=== PATIENT | female | born 1950 | race Caucasian/White ===

== ENCOUNTER → 2016-10-04 | Outpatient (CLI) | payer OTHER, MEDICARE ==
[~2016-10-04] MED LIST: ALPRAZOLAM 0.0.25 MG PO; BUPRENORPHINE HC8 MG SUBLING; CARISOPRODOL350 MG PO; CELEBREX 200 M200 MG PO; CENTRUM SILVER1 EAC4 PO; CRANBERRY200 MG PO; CYMBALTA30 MG PO; CYMBALTA60 MG PO; DIAZEPAM 10 MG10 M1 PO; FENTANYL PA50 MCG/HR TRANSDERM; FLONASE 0.05%50 MCG NS; HYDROCODON-ACE1 EAC2 PO; HYDROCODONE-AP1 EA12 PO; HYDROCODONE-AP1 EAC6 PO; LEVSIN0.125 MG PO; LOSARTAN-HCTZ1 EAC2 PO; MELOXICAM15 MG PO; NEXIUM40 MG PO; NITROFURANTOIN100 MG PO; PREVACID 30MG C30 M1 PG; RESTORIL15 MG PO; SINGULAIR 10 MG10 M1 PO; SOMA350 MG PO; SUDAFED 12 HR120 MG PO
== END ==
LOC: RAD 09:41
DX: R05 Cough (principal)

== ENCOUNTER → 2018-10-16 | Outpatient (CLI) | payer OTHER, MEDICARE ==
[~2018-10-16] MED LIST changes: +CLONAZEPAM 0.50.5 M1 PO; +CYCLOBENZAPRINE5 MG PO; +DURAGESIC1 EAC1 TRANSDERM; +NORCO 10-325 T1 EACH PO; +PROTONIX40 M1 PO; +PROTOPIC OINTME30 GM TOP; +REGLAN 10 MG TA10 MG PO; +VAYACOG CAPSUL1 EACH PO
== END ==
LOC: CAT 10-13 14:29
DX: S00.83XA Contusion of other part of head, initial encounter (principal); G31.9 Degenerative disease of nervous system, unspecified; Z85.528 Personal history of other malignant neoplasm of kidney; Z90.5 Acquired absence of kidney; Z90.49 Acquired absence of other specified parts of digestive tract; W19.XXXA Unspecified fall, initial encounter; Y93.89 Activity, other specified; Y92.89 Other specified places as the place of occurrence of the external cause; Y99.8 Other external cause status

== ENCOUNTER → 2019-02-19 | Outpatient (CLI) | payer OTHER, MEDICARE ==
[~2019-02-19] VITALS: Ht 162.6 cm; Wt 68.0 kg
[~2019-02-19] MED LIST changes: +ALPRAZOLAM ER1 MG PO; +DURAGESIC1 EAC4 TRANSDERM; +ERGOCALCIF50000 UNIT PO; +LYRICA25 MG PO; +SOMNAPURE PO; +VIIBRYD20 MG PO
--- NOTE | ~2019-02-19 | P ---
[facility] [place] [address] PROCEDURE REPORT Name: KRYSTLE BUSTILLO Room #: REG [facility]#: [id number] Admission: 02/19/19 Attend Phys: Joshua Cabrera MD Discharge: Date of : 48 Report #: [id number] THIS REPORT FOR: //name// CC: Joshua Muse MD BRIEF HISTORY: The patient is a 68-year-old woman who was seen in the office recently. She was noted to be anemic once again. She had a workup for anemia in 2011, which was nondiagnostic. She denies any GI symptoms. She does take meloxicam on a daily basis. PREOPERATIVE DIAGNOSIS: Anemia. POSTOPERATIVE DIAGNOSES: 1. Small gastric ulcer antrum of stomach. 2. Erosive antral gastritis. MEDICATIONS: Deep sedation with propofol per anesthesia. SPECIMEN: Biopsies of ulcer. ESTIMATED BLOOD LOSS: 3 mL. PROCEDURE: EGD with biopsy. FINDINGS: Prior to propofol sedation, procedure of upper endoscopy was discussed with the patient as well as potential risks and its complications. She indicates she understands and desires to proceed. DESCRIPTION OF PROCEDURE: With the patient in the left lateral decubitus position, the Olympus video endoscope was inserted in cervical esophagus under direct vision without difficulty. Examination of this organ through its entire length revealed normal esophageal mucosa down the squamocolumnar junction. The squamocolumnar junction was inspected and noted to be unremarkable. No ulcers, erosions, strictures or masses or significant hiatal hernias were seen. Scope was advanced in the stomach which was examined on end view as well as retroflexed views. There were a couple punctate areas of darkish material. This may represent droplets of old blood. Also, could represent some bilious material. The mucosa in the proximal stomach was generally unremarkable. However in the antrum, there was a 5 mm benign appearing nonbleeding gastric ulcer. The base was clean. There was white exudate. No vessels or blood was seen. In addition, there were multiple erosions in the antrum of the stomach without evidence of active bleeding. The pylorus was unremarkable. The duodenal bulb and postbulbar sweep down to the third portion were noted to be unremarkable. No evidence of bleeding lesions. The villous pattern was normal. Vascular ectasias were not seen. At that point, the scope was slowly withdrawn [facility] [address] [place] [address] PROCEDURE REPORT Name: IWONAKRYSTLE J Room #: REG Kylah Alexander#: [id number] Admission: 02/19/19 Attend Phys: Joshua Cabrera MD Discharge: Date of : 48 Report #: [id number] and careful circumferential views confirmed the above findings. Biopsies were obtained of the gastric ulcer. The patient tolerated the procedure well. CONDITION OF THE PATIENT UPON DISCHARGE: Following procedure, the patient drowsy and prepared for colonoscopy. INSTRUCTIONS TO THE PATIENT AND FAMILY AT THE TIME OF DISCHARGE: We will have her withhold her meloxicam. She may use acetaminophen. We will have her start pantoprazole 40 mg daily and follow up with Dr. Muse with regard to management of her pain symptoms in view of the fact she now has an ulcer. In the intermediate, she may be able to return to nonsteroidal, but will need cytoprotection with either PPI or misoprostol. Proceed with colonoscopy at this time. By: [id number] Joshua Cabrera MD /nt
--- NOTE | ~2019-02-19 | P ---
[facility] [place] [address] PROCEDURE REPORT Name: KRYSTLE BUSTILLO Room #: REG [facility]#: [id number] Admission: 02/19/19 Attend Phys: Joshua Cabrera MD Discharge: Date of : 48 Report #: [id number] THIS REPORT FOR: //name// CC: Joshua Muse MD DATE OF SERVICE: 02/19/2019 BRIEF HISTORY: The patient is a 68-year-old woman with recent findings of anemia. She also has a history of colon polyps. PREOPERATIVE DIAGNOSES: Anemia and history of colon polyps. POSTOPERATIVE DIAGNOSES: 1. Diminutive cecal polyp. 2. Moderate sigmoid diverticula. MEDICATIONS: Deep sedation with propofol per Anesthesia. SPECIMEN: Cecal polyp. ESTIMATED BLOOD LOSS: 3 mL. PROCEDURE: Colonoscopy to cecum and terminal ileum with biopsy. FINDINGS: Prior to propofol sedation, procedure of colonoscopy discussed with the patient as well as potential risks and its complications. She indicates she understands and desires to proceed. DESCRIPTION OF PROCEDURE: With the patient in left lateral decubitus position, digital examination was completed, which revealed no abnormalities. Subsequently, the Olympus video colonoscope was introduced in the rectum, advanced under direct vision to the cecum. Done with minimal difficulty. Cecum was identified by the ileocecal valve and the appendiceal orifice. I was able to visualize the distal segment of terminal ileum, which was inspected and noted to be unremarkable. At that point, the scope was slowly withdrawn and careful circumferential views obtained. The prep was good. Mucosa was within normal limits, normal vascular pattern, normal light reflex. As we withdrew the scope, a diminutive polyp was seen and removed with biopsy forceps from the cecum. Scope was further withdrawn and no additional neoplastic lesions were seen. No additional polyps were identified. However, in the sigmoid colon, there was noted to be moderately severe diverticular disease without endoscopic evidence of diverticulitis. Scope was withdrawn in the rectum, no abnormalities were seen. Upon retroflexion, no abnormalities were seen. Scope was withdrawn. The patient tolerated the procedure well. [address] [address] PROCEDURE REPORT Name: KRYSTLE BUSTILLO Room #: REG [place] Alexander#: [id number] Admission: 02/19/19 Attend Phys: Joshua Cabrera MD Discharge: Date of : 48 Report #: [id number] CONDITION OF THE PATIENT UPON DISCHARGE: Following procedure, the patient drowsy, aroused, conversant and will be discharged home when fully ambulatory. INSTRUCTIONS TO THE PATIENT AND FAMILY AT THE TIME OF DISCHARGE: One diminutive polyp was seen and removed as described. We will follow up on the path and make further recommendations. If it would be adenomatous, return in 5 years; if not, then 10 years would be indicated. As far as anemia, I do not see an obvious explanation. Please see upper endoscopy report for additional details as she was found to have a gastric ulcer today. She will return to care of Dr. Vargas Muse and return to see me as needed. By: 1036 2036 Joshua Cabrera MD /nt
--- NOTE | 2019-02-20 15:07 | PATH ---
[facility] [address] [place] [address] PATHOLOGY RPT PROCEDURE Name: KRYSTLE BAKER Room #: REG TERESAKylah Rendon.#: [id number] Admission: 02/19/19 Date of : 48 Discharge: Report #: [id number] Path Case #: [id number] [facility] Accession Number: [id number] . 01 Material submitted: . PART A: stomach - BX GASTRIC ULCER R/O H PYLORI PART B: cecum - BX POLYP AT CECUM . 01 Clinical history: . Pre-OP DX: Anemia Post-OP DX: Gastric ulcer, gastritis, colon polyp, diverticulosis . 02 Diagnosis: A. Stomach, "gastric ulcer", biopsy: - Chronic superficial gastritis with focal superficial erosion. - No evidence of Helicobacter pylori on immunoperoxidase stain. . B. Colon, cecum, biopsy: - Colonic mucosa with moderate acute and chronic inflammation and mild hyperplastic changes. (MERVAT:serge; 02/20/2019) QTP/02/20/2019 . 02 Electronically signed: . Leander Conde MD, Pathologist NPI- [id number] . 01 Gross description: . A. Received in formalin labeled "Krystle Baker, GINA gastric ulcer, rule out H. pylori," are 2 segments of najera soft tissue measuring 0.9 x 0.2 x 0.2 cm in aggregate dimensions and ranging from 0.4 to 0.5 cm in maximum dimension. The specimen is submitted entirely in cassette A1. . B. Received in formalin labeled "Krystle Baker, GINA polyp at cecum," is a single segment of najera soft tissue measuring 0.4 cm in maximum dimension. The specimen is entirely submitted in cassette B1. (TSD; 02/19/2019) TOB/TOB . 02 Pathologist provided ICD-10: K29.30, K52.9, D64.9 . 02 CPT . 897980, 712024 Specimen Comment: A courtesy copy of this report has been sent to Specimen Comment: [phone], . Specimen Comment: Report sent to / [place] [address] PATHOLOGY RPT PROCEDURE Name: KRYSTLE BAKER [facility] [id number] Admission: 02/19/19 Date of : 48 Discharge: Report #: [id number] Path Case #: [id number] Specimen Comment: A duplicate report has been generated due to demographic updates. Performed at: [address] [facility], [place], [place] [id number] MD Danilo Centeno MD Phone: [phone] Performed at: [address] [facility] [id number] MD Ayah Duval MD Phone: [phone]
== END | disposition home or self-care (01) ==
LOC: GI 08:29
DX: K63.5 Polyp of colon (principal); K52.9 Noninfective gastroenteritis and colitis, unspecified; K57.30 Diverticulosis of large intestine without perforation or abscess without bleeding; K29.30 Chronic superficial gastritis without bleeding; K21.9 Gastro-esophageal reflux disease without esophagitis; Z86.010 Personal history of colon polyps; I10 Essential (primary) hypertension; F32.9 Major depressive disorder, single episode, unspecified; F41.9 Anxiety disorder, unspecified; G47.30 Sleep apnea, unspecified; Z90.49 Acquired absence of other specified parts of digestive tract; Z98.890 Other specified postprocedural states; Z98.41 Cataract extraction status, right eye; Z98.42 Cataract extraction status, left eye; Z79.899 Other long term (current) drug therapy; Z85.528 Personal history of other malignant neoplasm of kidney
CPT/HCPCS: 62110; 62900

== ENCOUNTER 2019-06-11 15:40 | Inpatient (IN) | payer OTHER, MEDICARE ==
[~2019-06-11] VITALS: Ht 162.6 cm; Wt 72.9 kg
[2019-06-11 15:41] VITALS: BP 100/64
[2019-06-11 17:12] LABS: ABSOLUTE NEUTROPHILS 4.6 thou/uL (1.4-8.2); BASOPHILS 0.9 % (0.0-2.0); HEMATOCRIT 34.5 % (37.0-47.0); HEMOGLOBIN 11.7 gm/dL (12.0-15.0); LYMPHOCYTES 30.1 % (24.0-44.0); MCH 29.1 pg (26.0-34.0); MCHC 33.9 g/dL (28.0-37.0); MCV 85.9 fL (80.0-100.0); MONOCYTES 5.6 % (1.0-8.0); PLATELET COUNT 205 thou/uL (150-400); POLYS 62.4 % (36.0-66.0); RBC 4.01 mil/uL (4.20-5.00); WBC 7.4 thou/uL (4.0-11.0)
[2019-06-11 17:21] LABS: CALCIUM 9.5 mg/dL (8.5-10.1); CREATININE 1.5 mg/dL (0.6-1.0); POTASSIUM 3.7 mmol/L (3.5-5.1)
[2019-06-11 17:27] LABS: ALBUMIN 3.9 g/dL (3.4-5.0); TOTAL BILIRUBIN 0.4 mg/dL (<0.1-1.0); TOTAL PROTEIN 7.8 g/dL (6.4-8.2)
[2019-06-11 18:19] LABS: BE(vivo) 0 mmol/L (-2 to +3); PCO2 36.7 mmHg (35.0-45.0); PO2 75.2 mmHg (80.0-100.0); pH 7.433 (7.360-7.450); sO2 95.6 % (92.0-98.0)
[2019-06-11 20:08] LABS: FIBRINOGEN 317.4 mg/dL (210-360); PROTIME 10.5 Seconds (9.3-11.4)
[2019-06-11 20:28] VITALS: BP 108/60
[2019-06-11 20:55] VITALS: BP 121/56
[2019-06-11] MEDS ORDERED: PREGABALIN25 MG PO (22:02)
--- NOTE | 2019-06-11 23:54 | NUR ---
Patient arrive to 3W around 2014 and she was oriented to the room, admission documentation completed, and consents were signed. Patient will be kept on bedrest due to pulmonary embolism, pending official provider orders, which arw expected in the morning. Patient was alert and oriented and nursing advised her to call if she needs any assistance. Patient further described she was "shocked" to find she has PEs and she has been considerably anxious. Nursing will continue to monitor.
--- NOTE | 2019-06-12 04:19 | NUR ---
Nursing monitored patient through NOC. Fall precautions in place; bed alarm on. Patient rested through NOC. Nursing will continue to monitor.
[2019-06-12 04:46] VITALS: BP 143/71
[2019-06-12 05:33] LABS: HEMATOCRIT 30.5 % (37.0-47.0); HEMOGLOBIN 10.3 gm/dL (12.0-15.0); MCH 29.3 pg (26.0-34.0); MCHC 33.8 g/dL (28.0-37.0); MCV 86.7 fL (80.0-100.0); RBC 3.51 mil/uL (4.20-5.00); RDW 14.1 % (10.5-14.5); WBC 5.9 thou/uL (4.0-11.0)
[2019-06-12 07:59] VITALS: BP 138/69
--- NOTE | 2019-06-12 08:43 | EKG ---
[address] [place] [address] ELECTROCARDIOGRAM REPORT Name: KRYSTLE BUSTILLO Yaneth Room #: 354-P ADM IN M.R.#: [id number] Admission: 06/11/19 Attend Phys: Vargas Muse MD Discharge: Date of : 48 Report #: [id number] THIS REPORT FOR: //name// [facility] ED Test Date: 2019-06-11 Test Time: 16:53:12 Pat Name: KRYSTLE BUSTILLO Department: Room: [facility] Gender: F Aprn: TANA : 1950 Requested By: Nena Osullivan Order Number: [id number] MD: Mathew Garcia Measurements Intervals [place] Rate: 95 P: 53 AL: 145 QRS: -31 QRSD: 128 T: 98 QT: 391 QTc: 492 Interpretive Statements Sinus rhythm Left bundle branch block Compared to ECG 03/08/2018 15:23:16 No significant changes Electronically Signed On 06-12-2019 8:42:55 CARPENTER FORM by Mathew Garcia [email or web address] <ELECTRONICALLY SIGNED> By: Mathew Garcia MD 06/12/19 0842 [id number] 52 Mathew Garcia MD /BRE
--- NOTE | 2019-06-12 10:20 | 2DMMODE ---
[facility] [address] [place] [address] 2 D/M-MODE ECHOCARDIOGRAM Name: KRYSTLE BUSTILLO Yaneth Room #: 354-P [facility]#: [id number] Admission: 06/11/19 Attend Phys: Vargas Muse, Discharge: Date of : 48 Report #: [id number] THIS REPORT FOR: //name// APPROVED REPORT Study performed: 06/12/2019 08:13:11 EXAM: Comprehensive 2D, Doppler, and color-flow Echocardiogram Patient Location: In-Patient Room #: 354 Status: routine BSA: 1.78 HR: 74 bpm BP: 130/69 mmHg Rhythm: LBBB Other Information Study Quality: Fair Indications Pulmonary Embolism 2D Dimensions RVDd: 37.75 mm IVSd: 12.20 (7-11mm) LVOT Diam: 18.57 (18-24mm) LVDd: 39.46 mm PWd: 8.61 (7-11mm) Ascending Ao: 32.61 (22-36mm) LVDs: 30.68 (25-40mm) Aortic Root: 36.61 mm Volumes Left Atrial Volume (Systole) Single Plane 4CH: 27.79 mL Single Plane 2CH: 19.10 mL LA ESV Index: 15.00 mL/m2 Aortic Valve AoV Peak Silvino.: 1.27 m/s AO Peak Gr.: 6.41 mmHg LVOT Max P.69 mmHg LVOT Max V: 0.96 m/s MARLENI Vmax: 2.05 cm2 Mitral Valve E/A Ratio: 0.6 MV Decel. Time: 86.84 ms MV E Max Silvino.: 0.46 m/s [facility] [address] [place] [address] 2 D/M-MODE ECHOCARDIOGRAM Name: KRYSTLE BUSTILLO Room #: 354-P [facility]#: [id number] Admission: 06/11/19 Attend Phys: Vargas Muse, Discharge: Date of : 48 Report #: [id number] MV A Silvino.: 0.73 m/s MV PHT: 25.18 ms IVRT: 119.95 ms Tricuspid Valve TR Peak Silvino.: 2.94 m/s TR Peak Gr.: 34.53 mmHg Left Ventricle The left ventricle is normal size. There is normal left ventricular wall thickness. Left ventricular systolic function is mildly decreased. LVEF is -50%. Mild diastolic dysfunction is present (impaired relaxation pattern). Right Ventricle The right ventricle is normal size. The right ventricular systolic function is normal. Atria The left atrium size is normal. The right atrium size is normal. Aortic Valve The aortic valve is normal in structure. No aortic regurgitation is present. There is no aortic valvular stenosis. Mitral Valve The mitral valve is normal in structure. Mild mitral regurgitation. No evidence of mitral valve stenosis. Tricuspid Valve The tricuspid valve is normal in structure. Mild to moderate tricuspid regurgitation. Estimated PAP is 34mmHg plus the right atrial pressure. Pulmonic Valve The pulmonary valve is normal in structure. Mild pulmonic regurgitation. Great Vessels The aortic root is normal in size. The ascending aorta is normal in size. IVC is not well visualized. Pericardium Small hemodynamically insignificant pericardial effusion. [facility] [address] [place] [address] 2 D/M-MODE ECHOCARDIOGRAM Name: IWONAKRYSTLE Yaneth Room #: 354-P [facility] IN ..#: [id number] Admission: 06/11/19 Attend Phys: Vargas Muse, Discharge: Date of : 48 Report #: [id number] <Conclusion> The left ventricle is normal size. LVEF is -50%. The aortic valve is normal in structure. The mitral valve is normal in structure. Mild mitral regurgitation. The tricuspid valve is normal in structure. Mild to moderate tricuspid regurgitation. Estimated PAP is 34mmHg plus the right atrial pressure. The pulmonary valve is normal in structure. Mild pulmonic regurgitation. Small hemodynamically insignificant pericardial effusion. <ELECTRONICALLY SIGNED> By: Adrián Curtis MD 06/12/19 1020 1020 1020 Adrián Curtis MD /INF
--- NOTE | 2019-06-12 10:35 | NUR ---
ASSESSMENT: CM REVIEWED CHART AND MET WITH PATIENT AT THE BEDSIDE. PT WAS ADMITTED FOR PULMONARY EMBOLI. PT REPORTS SHE LIVES IN A HOUSE WITH HER . PT REPORTS HAVING A COUPLE OF STEPS TO ENTER AND ABOUT 14 STEPS WITH HANDRAILS TO THE BASEMENT ONCE INSIDE BUT STATES SHE DOES NOT HAVE TO GO DOWN THERE. PT REPORTS SHE AMBULATES INDEPENDENTLY AND IS INDEPENDENT WITH ADLS. PT REPORTS HAVING A SHOWER CHAIR. PT STATES SHE ALSO WEARS A CPAP AT NIGHT. PT REPORTS SHE HAS NOT HAD HH IN THE PAST NOR BEEN TO A SNF. CM DISCUSSED ROLE. PT STATES SHE ANTICIPATES DISCHARGING HOME WITH NO NEEDS. CM WILL CONTINUE TO FOLLOW TO ASSIST NEEDED.
[2019-06-12 11:48] VITALS: BP 131/70
--- NOTE | 2019-06-12 13:12 | NUR ---
PT ALERT AND ORIENTED TIMES FOUR. VSS, 98%STEPHAN SR ON TELE, HEPARIN GTT INFUSING PER ORDER. PT DENIES PAIN/SOA. PT TOLERATES MEDS AND MEALS. WILL CONTINUE TO MON ITOR.
[2019-06-12 15:42] VITALS: BP 134/86
[2019-06-12 19:41] VITALS: BP 140/73
--- NOTE | 2019-06-13 02:04 | NUR ---
Patient seemed to become more confused/forgetful after MN; She "forgot" she had an IV running on several occasions, walking away from it causing near dislodgement. Also, she exited the bed several times without calling for help as directed to, triggering the bed alarm. She is displeased with nursing for setting the alarm. She is currently refusing her O2. Patient has a hx of UTI and will pass this informaition on to day shift. Nursing will continue to monitor.
[2019-06-13 03:47] VITALS: BP 187/92
[2019-06-13 05:36] LABS: HEMATOCRIT 35.8 % (37.0-47.0); MCHC 33.6 g/dL (28.0-37.0); MCV 86.3 fL (80.0-100.0); RBC 4.15 mil/uL (4.20-5.00); RDW 13.9 % (10.5-14.5); WBC 5.4 thou/uL (4.0-11.0)
[2019-06-13 06:07] VITALS: BP 151/98
--- NOTE | 2019-06-13 07:10 | NUR ---
Patient was observed taking Gaviscon from her purse and administering it to herself overnight. Nursing advised her not to take medication from home. The patient stated the Gaviscon bottle is empty and that she has no other home meds with her. The patient struggled through most of the overnight with anxiety, reflux, and loose stools. The patient advised she has had these problems chronically. Earlier, in the evening, she reported chronic back pain, rating it 10/10. Patient is wearing a Fentanyl patch, which she advised is what she uses at home for pain control. She also repeatedly got out of bed without calling for assistance. Nursing repeatedly educated her to call for help and not to get out of bed without assistance. Her bed alarm was kept on and fall precautions were in place.
[2019-06-13 08:05] VITALS: BP 171/108
--- NOTE | 2019-06-13 10:58 | NUR ---
PT TOOK A PAIR OF SCISSORS AND CUT IV TUBING OFF HEPARIN GTT. WHEN I ASKED PT WHY SHE DID THIS SHE STATED SHE HAD TWO IV'S AND ONLY NEEDED ONE. THE EXPLANATION DID NOT MAKE SENSE SO I CONTACTED DR. AGUILAR AND HE PLACED PATIENT INTO 1:1 OBSERVATION AND CONSULTED PSYCH. NURSING AID MARIAMA WILL SIT WITH PT FOR 1:1 OBSERVATION. WILL CONTINUE TO ASSESS.
[2019-06-13 11:15] VITALS: BP 152/88
--- NOTE | 2019-06-13 13:23 | NUR ---
on-going assessment: CM REVIEWED CHART. PT CONTINUES TO BE ON HEPARIN GTT. PT IS NOT MEDICALLY STABLE FOR DISCHARGE. CM WILL CONTINUE TO FOLLOW TO ASSIST NEEDED.
[2019-06-13 15:12] VITALS: BP 151/98
--- NOTE | 2019-06-13 16:31 | NUR ---
CALLED INTO PT'S ROOM BY DR. HILLS TO ASSIST WITH PT. WHILE IN ROOM WITH DR Gabe HILLS PT BECAME VERY AGITATED AND TRIED TO ASSUALT ME. I CALLED SECURITY AND PT WAS HELD BACK BY SO I COULD ESCAPE FROM PT. DR. HILLS ORDERED IM MEDICATION TO HELP CALM PT AND THIS WAS GIVEN BY DIANA NICOLE. I WILL GIVE CARE OF PT OVER TO MACHINED [employer]S METAL SPRAYER AMY.
--- NOTE | 2019-06-13 18:31 | NUR ---
PT BACK FROM CT
--- NOTE | 2019-06-13 18:36 | NUR ---
PT KEEPS TAKING OFF TELE. ENCOURAGE PT TO KEEP ON.
[2019-06-13 20:15] VITALS: BP 137/81
[2019-06-14 04:10] VITALS: BP 140/77
[2019-06-14 07:44] VITALS: BP 122/75
[2019-06-14] MEDS ORDERED: ELIQUIS5 MG PO (11:03)
[2019-06-14 15:25] VITALS: BP 106/53
[2019-06-14 17:06] VITALS: BP 106/53
--- NOTE | 2019-06-14 17:26 | NUR ---
PATIENT VERY CULM TODAY. DC TO HOME MOW.
== END 2019-06-14 17:27 | disposition home or self-care (01) | DRG 175 ==
LOC: ER 15:40 → EROBS 18:43 → 3W 18:43 → ENTRNSPT 06-14 17:21 → 3W 06-14 17:27
PROVIDERS: Internal Medicine Pulmonary Disease; Physician Assistant; ADMIT Family Medicine
DX: I26.99 Other pulmonary embolism without acute cor pulmonale (principal); J96.01 Acute respiratory failure with hypoxia; I12.9 Hypertensive chronic kidney disease with stage 1 through stage 4 chronic kidney disease, or unspecified chronic kidney disease; N18.9 Chronic kidney disease, unspecified; K21.9 Gastro-esophageal reflux disease without esophagitis; F32.9 Major depressive disorder, single episode, unspecified; F41.9 Anxiety disorder, unspecified; G47.33 Obstructive sleep apnea (adult) (pediatric); R59.9 Enlarged lymph nodes, unspecified; K57.30 Diverticulosis of large intestine without perforation or abscess without bleeding; K58.9 Irritable bowel syndrome, unspecified; R41.0 Disorientation, unspecified; Z90.5 Acquired absence of kidney; Z85.528 Personal history of other malignant neoplasm of kidney; Z90.49 Acquired absence of other specified parts of digestive tract; Z98.42 Cataract extraction status, left eye; Z98.41 Cataract extraction status, right eye; Z82.49 Family history of ischemic heart disease and other diseases of the circulatory system; Z82.3 Family history of stroke; Z80.0 Family history of malignant neoplasm of digestive organs; Z87.11 Personal history of peptic ulcer disease; Z86.010 Personal history of colon polyps
CPT/HCPCS: 10879

== ENCOUNTER → 2019-07-31 | Outpatient (CLI) | payer OTHER, MEDICARE ==
[~2019-07-31] MED LIST changes: +ELIQUIS5 MG PO; +PREGABALIN25 MG PO
== END ==
LOC: SJCVCIMAG 08:22
DX: I27.82 Chronic pulmonary embolism (principal); I10 Essential (primary) hypertension; Z90.49 Acquired absence of other specified parts of digestive tract

== ENCOUNTER → 2019-08-20 | Outpatient (CLI) | payer OTHER, MEDICARE | LOC: CAT 14:46 | DX: J84.10 Pulmonary fibrosis, unspecified (principal); I31.3 Pericardial effusion (noninflammatory); I25.10 Atherosclerotic heart disease of native coronary artery without angina pectoris; K76.0 Fatty (change of) liver, not elsewhere classified; C64.9 Malignant neoplasm of unspecified kidney, except renal pelvis; R59.0 Localized enlarged lymph nodes; G47.33 Obstructive sleep apnea (adult) (pediatric); Z99.89 Dependence on other enabling machines and devices; Z90.49 Acquired absence of other specified parts of digestive tract ==

== ENCOUNTER → 2019-12-18 | Outpatient (CLI) | payer OTHER, MEDICARE | LOC: MRI 13:43 | PROVIDERS: ATTEND Nurse Practitioner | DX: M47.22 Other spondylosis with radiculopathy, cervical region (principal); M48.02 Spinal stenosis, cervical region; M50.11 Cervical disc disorder with radiculopathy, high cervical region; M43.12 Spondylolisthesis, cervical region; M51.24 Other intervertebral disc displacement, thoracic region ==

== ENCOUNTER 2020-01-22 12:26 | Emergency (ER) | payer OTHER, MEDICARE ==
[~2020-01-22] VITALS: Ht 162.6 cm; Wt 71.7 kg
[2020-01-22 13:00] LABS: ABSOLUTE NEUTROPHILS 2.5 thou/uL (1.4-8.2); BASOPHILS 1.2 % (0.0-2.0); EOSINOPHILS 1.7 % (0.0-3.0); HEMATOCRIT 37.8 % (37.0-47.0); LYMPHOCYTES 35.8 % (24.0-44.0); MCH 30.2 pg (26.0-34.0); MCHC 34.4 g/dL (28.0-37.0); MCV 87.9 fL (80.0-100.0); MONOCYTES 8.1 % (1.0-8.0); PLATELET COUNT 207 thou/uL (150-400); POLYS 53.2 % (36.0-66.0); RDW 13.8 % (10.5-14.5); WBC 4.7 thou/uL (4.0-11.0)
[2020-01-22 13:10] LABS: ANION GAP 9 mmol/L (7-16); BUN 15 mg/dL (7-18); CALCIUM 9.3 mg/dL (8.5-10.1); CHLORIDE 99 mmol/L (98-107); CO2 25 mmol/L (21-32); CREATININE 1.2 mg/dL (0.6-1.0); GLUCOSE 140 mg/dL (74-106); POTASSIUM 4.1 mmol/L (3.5-5.1); SODIUM 133 mmol/L (136-145)
[2020-01-22 13:20] LABS: ALBUMIN 3.8 g/dL (3.4-5.0); SGOT 63 U/L (15-37); SGPT 64 U/L (30-65); TOTAL BILIRUBIN 0.3 mg/dL (0.2-1.0); TOTAL PROTEIN 7.4 g/dL (6.4-8.2); TROPONIN-I <0.06 ng/mL (<0.06)
[2020-01-22] MEDS ORDERED: HYDROCHLOROTH12.5 M2 PO (13:51)
[2020-01-22] MEDS ORDERED: CARVEDILOL3.125 MG PO (13:51)
[2020-01-22] MEDS ORDERED: TOLTERODINE TART2 M1 PO (13:51)
[2020-01-22] MEDS ORDERED: FENTANYL1 EACH TOP (13:52)
[2020-01-22] MEDS ORDERED: PREGABALIN50 MG PO (13:52)
[2020-01-22] MEDS ORDERED: FAMOTIDINE40 MG PO (13:52)
[2020-01-22] MEDS ORDERED: ALPRAZOLAM XR1 MG PO (13:52)
[2020-01-22 13:55] LABS: URINE BILIRUBIN NEGATIVE (Negative); URINE BLOOD TRACE (Negative); URINE CLARITY CLEAR; URINE COLOR YELLOW; URINE GLUCOSE-RANDOM* NEGATIVE (Negative); URINE KETONES NEGATIVE (Negative); URINE LEUKOCYTES-REFLEX NEGATIVE (Negative); URINE NITRITE-REFLEX NEGATIVE (Negative); URINE PROTEIN (DIPSTICK) NEGATIVE (Negative); URINE SPECIFIC GRAVITY 1.015 (1.005-1.035); URINE UROBILINOGEN 0.2 E.U./dl (0.2-1.0)
[2020-01-22 14:35] VITALS: BP 128/68
--- NOTE | 2020-01-22 16:46 | EKG ---
[facility] [place] [address] ELECTROCARDIOGRAM REPORT Name: KRYSTLE BUSTILLO Room #: DEP [facility]#: [id number] Admission: 01/22/20 Attend Phys: Discharge: 01/22/20 Date of : 48 Report #: [id number] THIS REPORT FOR: cc: Vargas Muse MD, Neal A. MD Lundgren,Ignacio Ac MD [facility] THIS REPORT FOR: //name// [facility] ED Test Date: 2020-01-22 Test Time: 13:35:08 Pat Name: KRYSTLE BUSTILLO Department: Room: Gender: Construction Electrician: [facility] : 1950 Requested By: Kavya Storey Order Number: [id number] MD: Ignacio Smith Measurements Intervals [place] Rate: 79 P: 59 MS: 161 QRS: -33 QRSD: 127 T: 113 QT: 387 QTc: 444 Interpretive Statements Sinus rhythm Left bundle branch block Compared to ECG 12/17/2019 16:32:22 No significant changes Electronically Signed On 01-22-2020 16:46:30 CDT by Ignacio Smith [email or web address] <ELECTRONICALLY SIGNED> By: Ignacio Smith MD, [facility] 01/22/20 1646 1335 1335 Ignacio Smith MD, [facility] /EPI
== END 2020-01-22 14:37 | disposition home or self-care (01) ==
LOC: ER 12:26
PROVIDERS: Physician Assistant
DX: S40.022A Contusion of left upper arm, initial encounter (principal); S16.1XXA Strain of muscle, fascia and tendon at neck level, initial encounter; R45.1 Restlessness and agitation; R10.11 Right upper quadrant pain; Z90.49 Acquired absence of other specified parts of digestive tract; Z79.899 Other long term (current) drug therapy; W01.0XXA Fall on same level from slipping, tripping and stumbling without subsequent striking against object, initial encounter; Y93.89 Activity, other specified; Y92.89 Other specified places as the place of occurrence of the external cause; Y99.8 Other external cause status

== ENCOUNTER → 2020-09-08 | Outpatient (CLI) | payer OTHER, MEDICARE ==
[~2020-09-08] MED LIST changes: +ALPRAZOLAM XR1 MG PO; +CARVEDILOL3.125 MG PO; +FAMOTIDINE40 MG PO; +FENTANYL1 EACH TOP; +HYDROCHLOROTH12.5 M2 PO; +PREGABALIN50 MG PO; +TOLTERODINE TART2 M1 PO
== END ==
LOC: ULTRA 09:22
PROVIDERS: ATTEND Family Medicine
DX: K76.0 Fatty (change of) liver, not elsewhere classified (principal)

== ENCOUNTER 2020-12-22 16:33 | Emergency (ER) | payer OTHER, MEDICARE ==
[~2020-12-22] VITALS: Ht 162.6 cm; Wt 66.2 kg
[2020-12-22 18:53] LABS: CALCIUM 8.8 mg/dL (8.5-10.1); CREATININE 1.2 mg/dL (0.6-1.0)
[2020-12-22] MEDS ORDERED: POTASSIUM20 PO (19:12)
[2020-12-22] MEDS ORDERED: ZANAFLEX4 MG PO (19:12)
[2020-12-22 19:25] VITALS: BP 132/63
== END 2020-12-22 19:31 | disposition home or self-care (01) ==
LOC: ER 16:33
PROVIDERS: Nurse Practitioner
DX: M25.511 Pain in right shoulder (principal); M25.512 Pain in left shoulder; M54.2 Cervicalgia; Z79.899 Other long term (current) drug therapy; Z90.49 Acquired absence of other specified parts of digestive tract

== ENCOUNTER → 2021-01-01 | Outpatient (CLI) | payer OTHER, MEDICARE ==
[~2021-01-01] MED LIST changes: +POTASSIUM20 PO; +ZANAFLEX4 MG PO
== END ==
LOC: SJCVC 10:01
PROVIDERS: ATTEND Internal Medicine
DX: R94.31 Abnormal electrocardiogram [ECG] [EKG] (principal); I44.7 Left bundle-branch block, unspecified; R06.00 Dyspnea, unspecified; I10 Essential (primary) hypertension; G47.33 Obstructive sleep apnea (adult) (pediatric); C64.9 Malignant neoplasm of unspecified kidney, except renal pelvis; I12.9 Hypertensive chronic kidney disease with stage 1 through stage 4 chronic kidney disease, or unspecified chronic kidney disease; N18.32 Chronic kidney disease, stage 3b; E78.5 Hyperlipidemia, unspecified; I73.9 Peripheral vascular disease, unspecified; F32.9 Major depressive disorder, single episode, unspecified; K21.9 Gastro-esophageal reflux disease without esophagitis; Z99.89 Dependence on other enabling machines and devices; Z90.5 Acquired absence of kidney; Z79.899 Other long term (current) drug therapy

== ENCOUNTER → 2021-01-30 | Outpatient (CLI) | payer OTHER, MEDICARE | LOC: SJCVCIMAG 08:02 | PROVIDERS: ATTEND Internal Medicine | DX: I08.1 Rheumatic disorders of both mitral and tricuspid valves (principal); R00.0 Tachycardia, unspecified; I44.7 Left bundle-branch block, unspecified; I10 Essential (primary) hypertension; E78.00 Pure hypercholesterolemia, unspecified; E78.5 Hyperlipidemia, unspecified; I73.9 Peripheral vascular disease, unspecified; Z79.899 Other long term (current) drug therapy ==

== ENCOUNTER → 2021-02-11 | Outpatient (CLI) | payer OTHER, MEDICARE | LOC: SJCVC 11:46 | PROVIDERS: ATTEND Internal Medicine | DX: I12.9 Hypertensive chronic kidney disease with stage 1 through stage 4 chronic kidney disease, or unspecified chronic kidney disease (principal); N18.32 Chronic kidney disease, stage 3b; I44.7 Left bundle-branch block, unspecified; G47.33 Obstructive sleep apnea (adult) (pediatric); E78.5 Hyperlipidemia, unspecified; C64.9 Malignant neoplasm of unspecified kidney, except renal pelvis; K21.9 Gastro-esophageal reflux disease without esophagitis; I73.9 Peripheral vascular disease, unspecified; Z90.5 Acquired absence of kidney; Z99.89 Dependence on other enabling machines and devices; Z90.49 Acquired absence of other specified parts of digestive tract; Z79.899 Other long term (current) drug therapy; Z85.53 Personal history of malignant neoplasm of renal pelvis; Z86.711 Personal history of pulmonary embolism; Z82.49 Family history of ischemic heart disease and other diseases of the circulatory system ==

== ENCOUNTER → 2021-07-31 | Outpatient (CLI) | payer OTHER, MEDICARE | LOC: SJCVC 13:46 | PROVIDERS: ATTEND Internal Medicine | DX: I44.7 Left bundle-branch block, unspecified (principal); R94.31 Abnormal electrocardiogram [ECG] [EKG]; C64.9 Malignant neoplasm of unspecified kidney, except renal pelvis; I12.9 Hypertensive chronic kidney disease with stage 1 through stage 4 chronic kidney disease, or unspecified chronic kidney disease; N18.32 Chronic kidney disease, stage 3b; E78.5 Hyperlipidemia, unspecified; G47.33 Obstructive sleep apnea (adult) (pediatric); K21.9 Gastro-esophageal reflux disease without esophagitis; Z90.5 Acquired absence of kidney; Z99.89 Dependence on other enabling machines and devices; Z82.49 Family history of ischemic heart disease and other diseases of the circulatory system; Z79.899 Other long term (current) drug therapy ==